=== PATIENT | male | born 1980 | race African-American/Black ===

== ENCOUNTER 2021-04-15 15:58 | Inpatient (IN) | payer OTHER ==
[2021-04-15 16:46] VITALS: BMI 22.7
[2021-04-15] MEDS ORDERED: IBUPROFEN 400 MG TABLET (FP) PO PRN (19:30)
[2021-04-15] MEDS ORDERED: MAG HYDROX/AL HYDROX/SIMETH 30 ML UNIT-DOSE CUP PO PRN (19:30)
[2021-04-15] MEDS ORDERED: ACETAMINOPHEN 325 MG TABLET (FP) PO PRN ×2 (19:30)
[2021-04-15] MEDS ORDERED: cloNIDine HCL 0.1 MG TABLET PO PRN (19:30)
[2021-04-15] MEDS ORDERED: BISMUTH SUBSALICYLATE 524 MG/30 ML PO PRN (19:30)
[2021-04-15] MEDS ORDERED: methaDONE HCL 10 MG TABLET (FOR DETOX USE ONLY) PO ONE (19:30)
[2021-04-15] MEDS ORDERED: LOPERAMIDE HCL 2 MG CAPSULE PO PRN (19:30)
[2021-04-15] MEDS ORDERED: NICOTINE 10 MG CARTRIDGE (INHALER) IH PRN (19:30)
[2021-04-15] MEDS ORDERED: ONDANSETRON *ODT* 4 MG TABLET SL PRN (19:30)
[2021-04-15] MEDS ORDERED: diazePAM 5 MG TABLET PO PRN (19:30)
[2021-04-15] MEDS ORDERED: MENTHOL/PHENOL 1 EACH UD MM PRN (19:30)
[2021-04-15] MEDS ORDERED: MAGNESIUM CITRATE 300 ML BOTTLE PO PRN (19:30)
[2021-04-15] MEDS ORDERED: MAGNESIUM HYDROX 2400MG/30ML ORAL SUSPENSION 30 ML CUP PO PRN (19:30)
[2021-04-15] MEDS ORDERED: ALBUTEROL SO4 HFA INHALER IH PRN (19:34)
[2021-04-15] MEDS ORDERED: methaDONE HCL 10 MG TABLET (FOR DETOX USE ONLY) ONE (22:36)
[2021-04-15] MEDS ORDERED: hydrOXYzine PAMOATE 25 MG CAPSULE (FP) PO ONE (22:36)
[2021-04-15] MEDS: MELATONIN 5 MG TABLETS PO SCH (22:37)
[2021-04-15] MEDS: hydrOXYzine PAMOATE 25 MG CAPSULE (FP) PO SCH (22:38)
[2021-04-15] MEDS: THIAMINE HCL 100 MG TABLET (FP) PO SCH (22:38)
[2021-04-15] MEDS: diazePAM 5 MG TABLET PO SCH (22:39)
[2021-04-16] MEDS ORDERED: diazePAM 5 MG TABLET ONE (06:42)
[2021-04-16] MEDS ORDERED: hydrOXYzine PAMOATE 25 MG CAPSULE (FP) PO ONE (06:42)
[2021-04-16] MEDS: hydrOXYzine PAMOATE 25 MG CAPSULE (FP) PO SCH ×5 (06:48→22:23)
[2021-04-16] MEDS: diazePAM 5 MG TABLET PO SCH ×5 (06:48→22:23)
[2021-04-16] MEDS ORDERED: methaDONE HCL 10 MG TABLET (FOR DETOX USE ONLY) ONE (11:20)
[2021-04-16] MEDS: PRENATAL VITAMINS W/ FOLIC ACID TABLET (FP) PO SCH (11:29)
[2021-04-16] MEDS: METHOCARBAMOL 500 MG TABLET PO PRN ×2 (11:34→17:52)
[2021-04-16] MEDS: MELATONIN 5 MG TABLETS PO SCH (22:23)
[2021-04-16] MEDS: THIAMINE HCL 100 MG TABLET (FP) PO SCH (22:23)
[2021-04-17] MEDS ORDERED: diazePAM 5 MG TABLET PO SCH (06:00)
[2021-04-17] MEDS: hydrOXYzine PAMOATE 25 MG CAPSULE (FP) PO SCH ×2 (06:00→10:11)
[2021-04-17 08:59] VITALS: BP 127/72; PULSE 88; TEMP 98.3
[2021-04-17] MEDS ORDERED: methaDONE HCL 10 MG TABLET (FOR DETOX USE ONLY) PO ONE (10:00)
[2021-04-17] MEDS: PRENATAL VITAMINS W/ FOLIC ACID TABLET (FP) PO SCH (10:11)
[2021-04-17 11:31] LABS: HEMOGLOBIN 14.2 GM/dL (11.7-16.9); MCH 31.3 pg (25.7-33.7); MEAN CELL VOLUME 95.1 fl (80-96); MEAN PLT VOLUME 8.3 fl (7.5-11.1); PLATELET COUNT 315 10^3/uL (134-434); RBC 4.53 M/mm3 (4.00-5.60); RDW 13.9 % (11.9-15.9); WHITE BLOOD COUNT 4.8 K/mm3 (4.0-10.0)
[2021-04-17 11:37] LABS: CALCIUM 8.3 mg/dL (8.5-10.1)
[2021-04-17 11:38] LABS: ALBUMIN 2.5 g/dl (3.4-5.0); CREATININE 0.6 mg/dL (0.55-1.3)
[2021-04-17 11:40] LABS: BILIRUBIN,TOTAL 0.3 mg/dL (0.2-1); TOT PROT 6.6 g/dl (6.4-8.2)
[2021-04-18] MEDS ORDERED: diazePAM 5 MG TABLET PO SCH (06:00)
[2021-04-19] MEDS ORDERED: diazePAM 5 MG TABLET PO ONE (06:00)
[2021-04-19] MEDS ORDERED: methaDONE HCL 10 MG TABLET (FOR DETOX USE ONLY) PO ONE (10:00)
== END 2021-04-17 11:42 | disposition left against medical advice (07) | DRG 770 ==
LOC: YASAS 15:58 → Y3N 04-16 10:32
PROVIDERS: ADMIT Allergy & Immunology; ATTEND Allergy & Immunology
PROC: HZ2ZZZZ Detoxification Services for Substance Abuse Treatment (ICD-10-PCS; principal; 2021-04-16)
DX: F11.23 Opioid dependence with withdrawal (principal); F10.230 Alcohol dependence with withdrawal, uncomplicated; F13.20 Sedative, hypnotic or anxiolytic dependence, uncomplicated; Z91.013 Allergy to seafood
CPT/HCPCS: 36415; 80053; 85027; 86780; 87811; C9803; U0003; U0005

== ENCOUNTER 2021-05-17 17:04 | Inpatient (IN) | payer OTHER ==
[2021-05-17 18:56] VITALS: BMI 23.5
[2021-05-17] MEDS ORDERED: MAGNESIUM HYDROX 2400MG/30ML ORAL SUSPENSION 30 ML CUP PO PRN (21:16)
[2021-05-17] MEDS ORDERED: hydrOXYzine PAMOATE 25 MG CAPSULE (FP) PO PRN (21:16)
[2021-05-17] MEDS ORDERED: MELATONIN 5 MG TABLETS PO PRN (21:16)
[2021-05-17] MEDS ORDERED: ACETAMINOPHEN 325 MG TABLET (FP) PO PRN (21:16)
[2021-05-17] MEDS ORDERED: ALBUTEROL SO4 HFA INHALER IH PRN (21:16)
[2021-05-17] MEDS ORDERED: DICYCLOMINE HCL 10 MG CAPSULE PO PRN (21:16)
[2021-05-17] MEDS ORDERED: MAG HYDROX/AL HYDROX/SIMETH 30 ML UNIT-DOSE CUP PO PRN (21:16)
[2021-05-17] MEDS ORDERED: LOPERAMIDE HCL 2 MG CAPSULE PO PRN (21:16)
[2021-05-17] MEDS ORDERED: BISMUTH SUBSALICYLATE 524 MG/30 ML PO PRN (21:16)
[2021-05-17] MEDS ORDERED: BENZOCAINE/MENTHOL (CHLORASEPTIC ) LOZENGE MM PRN (21:16)
[2021-05-17] MEDS ORDERED: MAGNESIUM CITRATE 300 ML BOTTLE PO PRN (21:16)
[2021-05-17] MEDS ORDERED: NICOTINE POLACRILEX 2 MG GUM BUC PRN (21:16)
[2021-05-17] MEDS ORDERED: METHOCARBAMOL 500 MG TABLET PO PRN (21:16)
[2021-05-17] MEDS ORDERED: ONDANSETRON *ODT* 4 MG TABLET SL PRN (21:16)
[2021-05-17] MEDS ORDERED: IBUPROFEN 400 MG TABLET (FP) PO PRN (21:16)
[2021-05-17] MEDS ORDERED: methaDONE HCL 10 MG TABLET (FOR DETOX USE ONLY) PO ONE (21:20)
[2021-05-17] MEDS ORDERED: cloNIDine HCL 0.1 MG TABLET PO PRN (21:20)
[2021-05-17] MEDS: diazePAM 5 MG TABLET PO SCH (23:44)
[2021-05-17] MEDS: CLINDAMYCIN HCL 150 MG CAPSULE (FP) PO SCH (23:46)
[2021-05-17] MEDS: ACETAMINOPHEN 325 MG TABLET (FP) PO PRN (23:46)
[2021-05-17] MEDS: THIAMINE HCL 100 MG TABLET (FP) PO SCH (23:50)
[2021-05-18] MEDS: CLINDAMYCIN HCL 150 MG CAPSULE (FP) PO SCH ×4 (00:01→18:24)
[2021-05-18] MEDS: diazePAM 5 MG TABLET PO SCH ×4 (06:21→22:26)
[2021-05-18] MEDS: ACETAMINOPHEN 325 MG TABLET (FP) PO PRN ×2 (06:22→14:38)
[2021-05-18] MEDS ORDERED: methaDONE HCL 10 MG TABLET (FOR DETOX USE ONLY) ONE (09:42)
[2021-05-18] MEDS: PRENATAL VITAMINS W/ FOLIC ACID TABLET (FP) PO SCH (10:24)
[2021-05-18] MEDS ORDERED: BUPRENORPHINE/NALOXONE 4 MG/1 MG FILM PACKET SL ONE ×2 (10:51→14:00)
[2021-05-18 12:16] LABS: BLOOD UREA NITROGEN 19.5 mg/dL (7-18); CALCIUM 8.5 mg/dL (8.5-10.1)
[2021-05-18 12:17] LABS: ALBUMIN 2.8 g/dl (3.4-5.0)
[2021-05-18 12:19] LABS: CREATININE 0.8 mg/dL (0.55-1.3)
[2021-05-18 12:20] LABS: HEMATOCRIT 41.5 % (35.4-49); HEMOGLOBIN 13.6 GM/dL (11.7-16.9); MCH 32.1 pg (25.7-33.7); MCHC 32.8 g/dl (32.0-35.9); MEAN CELL VOLUME 98.1 fl (80-96); MEAN PLT VOLUME 8.3 fl (7.5-11.1); PLATELET COUNT 249 10^3/uL (134-434); RBC 4.23 M/mm3 (4.00-5.60); RDW 14.5 % (11.9-15.9); WHITE BLOOD COUNT 6.9 K/mm3 (4.0-10.0)
[2021-05-18 12:21] LABS: BILIRUBIN,TOTAL 0.5 mg/dL (0.2-1); TOT PROT 6.2 g/dl (6.4-8.2)
[2021-05-18] MEDS: diazePAM 5 MG TABLET PO PRN (14:35)
[2021-05-18] MEDS: BUPRENORPHINE/NALOXONE 8 MG/2 MG FILM PACKET SL SCH (18:31)
[2021-05-18] MEDS ORDERED: BUPRENORPHINE/NALOXONE 8 MG/2 MG FILM PACKET SL SCH (22:00)
[2021-05-18] MEDS: BACLOFEN 10 MG TABLET (FP) PO PRN (22:26)
[2021-05-18] MEDS: THIAMINE HCL 100 MG TABLET (FP) PO SCH (22:26)
[2021-05-19] MEDS: CLINDAMYCIN HCL 150 MG CAPSULE (FP) PO SCH ×3 (01:04→13:18)
[2021-05-19] MEDS: diazePAM 5 MG TABLET PO SCH ×2 (05:18→15:17)
[2021-05-19] MEDS: BACLOFEN 10 MG TABLET (FP) PO PRN (05:19)
[2021-05-19] MEDS: ACETAMINOPHEN 325 MG TABLET (FP) PO PRN (05:22)
[2021-05-19 08:54] VITALS: BP 126/73; PULSE 64; TEMP 98.2
[2021-05-19] MEDS ORDERED: methaDONE HCL 10 MG TABLET (FOR DETOX USE ONLY) PO ONE (10:00)
[2021-05-19] MEDS: diazePAM 5 MG TABLET PO PRN (10:10)
[2021-05-19] MEDS: PRENATAL VITAMINS W/ FOLIC ACID TABLET (FP) PO SCH (10:11)
[2021-05-19] MEDS: BUPRENORPHINE/NALOXONE 8 MG/2 MG FILM PACKET SL SCH (10:11)
[2021-05-19 18:08] LABS: SARS-CoV-2 NAA Not Detected (Not Detected)
[2021-05-20] MEDS ORDERED: diazePAM 5 MG TABLET PO SCH (06:00)
[2021-05-21] MEDS ORDERED: diazePAM 5 MG TABLET PO ONE (06:00)
[2021-05-21] MEDS ORDERED: methaDONE HCL 10 MG TABLET (FOR DETOX USE ONLY) PO ONE (10:00)
== END 2021-05-19 11:20 | disposition left against medical advice (07) | DRG 770 ==
LOC: YASAS 17:04 → Y3N 22:22
PROVIDERS: ADMIT Allergy & Immunology; ATTEND Allergy & Immunology
PROC: HZ2ZZZZ Detoxification Services for Substance Abuse Treatment (ICD-10-PCS; principal; 2021-05-17)
DX: F11.20 Opioid dependence, uncomplicated (principal); F13.20 Sedative, hypnotic or anxiolytic dependence, uncomplicated; F14.20 Cocaine dependence, uncomplicated; F10.20 Alcohol dependence, uncomplicated; F17.210 Nicotine dependence, cigarettes, uncomplicated; F19.24 Other psychoactive substance dependence with psychoactive substance-induced mood disorder; B18.2 Chronic viral hepatitis C; G47.00 Insomnia, unspecified; J45.909 Unspecified asthma, uncomplicated; Z91.013 Allergy to seafood; Z59.00 Homelessness unspecified
CPT/HCPCS: 36415; 80053; 85027; 86780; C9803-CS; J0475; U0003; U0005

== ENCOUNTER 2021-07-04 17:28 | Inpatient (IN) | payer OTHER ==
[2021-07-04 20:13] VITALS: BMI 24.1
[2021-07-04] MEDS ORDERED: hydrOXYzine PAMOATE 25 MG CAPSULE (FP) PO PRN (20:48)
[2021-07-04] MEDS ORDERED: guaiFENesin 200 MG/10 ML 10 ML UNIT-DOSE CUPS PO PRN (20:48)
[2021-07-04] MEDS ORDERED: DICYCLOMINE HCL 10 MG CAPSULE PO PRN (20:48)
[2021-07-04] MEDS ORDERED: LOPERAMIDE HCL 2 MG CAPSULE PO PRN (20:48)
[2021-07-04] MEDS ORDERED: MAGNESIUM CITRATE 300 ML BOTTLE PO PRN (20:48)
[2021-07-04] MEDS ORDERED: P-EPHED 60MG/TRIPROLIDI 2.5MG TABLET PO PRN (20:48)
[2021-07-04] MEDS ORDERED: ONDANSETRON *ODT* 4 MG TABLET SL PRN (20:48)
[2021-07-04] MEDS ORDERED: MAG HYDROX/AL HYDROX/SIMETH 30 ML UNIT-DOSE CUP PO PRN (20:48)
[2021-07-04] MEDS ORDERED: IBUPROFEN 400 MG TABLET (FP) PO PRN (20:48)
[2021-07-04] MEDS ORDERED: MAGNESIUM HYDROX 2400MG/30ML ORAL SUSPENSION 30 ML CUP PO PRN (20:48)
[2021-07-04] MEDS ORDERED: ACETAMINOPHEN 325 MG TABLET (FP) PO PRN (20:48)
[2021-07-04] MEDS ORDERED: NALOXONE HCL 0.4 MG/ML VIAL IM PRN (20:48)
[2021-07-04] MEDS ORDERED: BISMUTH SUBSALICYLATE 524 MG/30 ML PO PRN (20:48)
[2021-07-04] MEDS ORDERED: BENZOCAINE/MENTHOL (CHLORASEPTIC ) LOZENGE MM PRN (20:48)
[2021-07-05] MEDS: ACETAMINOPHEN 325 MG TABLET (FP) PO PRN ×4 (01:26→22:48)
[2021-07-05] MEDS: MELATONIN 5 MG TABLETS PO SCH ×2 (01:40→22:47)
[2021-07-05] MEDS: THIAMINE HCL 100 MG TABLET (FP) PO SCH ×2 (01:40→22:47)
[2021-07-05] MEDS ORDERED: cloNIDine HCL 0.1 MG TABLET PO PRN (09:00)
[2021-07-05] MEDS ORDERED: ALBUTEROL SO4 HFA INHALER IH PRN (09:07)
[2021-07-05] MEDS ORDERED: methaDONE HCL 10 MG TABLET (FOR DETOX USE ONLY) PO ONE (09:30)
[2021-07-05] MEDS: NICOTINE 21 MG/24 HOURS TOPICAL PATCH TD SCH (10:11)
[2021-07-05] MEDS: PRENATAL VITAMINS W/ FOLIC ACID TABLET (FP) PO SCH (10:11)
[2021-07-05] MEDS: diazePAM 5 MG TABLET PO PRN ×3 (10:12→22:49)
[2021-07-05 10:56] LABS: HEMATOCRIT 43.4 % (35.4-49); HEMOGLOBIN 14.5 GM/dL (11.7-16.9); MCH 32.3 pg (25.7-33.7); MCHC 33.5 g/dl (32.0-35.9); MEAN CELL VOLUME 96.6 fl (80-96); MEAN PLT VOLUME 8.6 fl (7.5-11.1); PLATELET COUNT 169 10^3/uL (134-434); RDW 13.1 % (11.9-15.9); WHITE BLOOD COUNT 6.4 K/mm3 (4.0-10.0)
[2021-07-05 11:19] LABS: BLOOD UREA NITROGEN 17.4 mg/dL (7-18); CALCIUM 8.5 mg/dL (8.5-10.1)
[2021-07-05 11:22] LABS: TOT PROT 6.6 g/dl (6.4-8.2)
[2021-07-05 11:23] LABS: BILIRUBIN,TOTAL 0.5 mg/dL (0.2-1); CREATININE 0.7 mg/dL (0.55-1.3)
[2021-07-05 11:58] LABS: HIV INTERPRETATION NEGATIVE (NEGATIVE)
[2021-07-05] MEDS ORDERED: ALBUTEROL SO4 HFA INHALER IH SCH (12:30)
[2021-07-05] MEDS: ALBUTEROL SO4 HFA INHALER IH PRN ×2 (17:15→22:46)
[2021-07-05] MEDS: METHOCARBAMOL 500 MG TABLET PO PRN (22:48)
[2021-07-06] MEDS ORDERED: methaDONE HCL 10 MG TABLET (FOR DETOX USE ONLY) ONE (08:49)
[2021-07-06] MEDS ORDERED: ALBUTEROL SO4 2.5/IPRATROPIUM 0.5 INH SOL 3 ML VIAL.NEB. NEB PRN (09:54)
[2021-07-06] MEDS: PRENATAL VITAMINS W/ FOLIC ACID TABLET (FP) PO SCH (10:12)
[2021-07-06] MEDS: NICOTINE 21 MG/24 HOURS TOPICAL PATCH TD SCH (10:13)
[2021-07-06] MEDS: NICOTINE POLACRILEX 2 MG GUM BUC PRN (10:13)
[2021-07-06] MEDS: diazePAM 5 MG TABLET PO PRN ×3 (10:14→21:08)
[2021-07-06] MEDS: ALBUTEROL SO4 HFA INHALER IH PRN ×2 (10:17→15:33)
[2021-07-06] MEDS: ACETAMINOPHEN 325 MG TABLET (FP) PO PRN (10:17)
[2021-07-06] MEDS: MELATONIN 5 MG TABLETS PO SCH (21:07)
[2021-07-06] MEDS: THIAMINE HCL 100 MG TABLET (FP) PO SCH (21:07)
[2021-07-07] MEDS: diazePAM 5 MG TABLET PO PRN ×4 (05:41→22:23)
[2021-07-07] MEDS: ALBUTEROL SO4 HFA INHALER IH PRN ×3 (05:41→17:13)
[2021-07-07] MEDS ORDERED: methaDONE HCL 10 MG TABLET (FOR DETOX USE ONLY) PO ONE (10:00)
[2021-07-07] MEDS: PRENATAL VITAMINS W/ FOLIC ACID TABLET (FP) PO SCH (10:29)
[2021-07-07] MEDS: METHOCARBAMOL 500 MG TABLET PO PRN ×2 (10:29→22:23)
[2021-07-07] MEDS: NICOTINE 21 MG/24 HOURS TOPICAL PATCH TD SCH (10:29)
[2021-07-07] MEDS: ACETAMINOPHEN 325 MG TABLET (FP) PO PRN ×2 (10:32→17:07)
[2021-07-07] MEDS: NICOTINE POLACRILEX 2 MG GUM BUC PRN (17:12)
[2021-07-07] MEDS: MELATONIN 5 MG TABLETS PO SCH (22:21)
[2021-07-07] MEDS: THIAMINE HCL 100 MG TABLET (FP) PO SCH (22:21)
[2021-07-08] MEDS: ALBUTEROL SO4 HFA INHALER IH PRN (05:42)
[2021-07-08] MEDS: diazePAM 5 MG TABLET PO PRN (05:42)
[2021-07-08 08:07] VITALS: BP 103/63; PULSE 74; TEMP 97.3
[2021-07-08] MEDS ORDERED: methaDONE HCL 10 MG TABLET (FOR DETOX USE ONLY) ONE (09:07)
[2021-07-09] MEDS ORDERED: methaDONE HCL 10 MG TABLET (FOR DETOX USE ONLY) PO ONE (10:00)
== END 2021-07-08 09:33 | disposition left against medical advice (07) | DRG 770 ==
LOC: YASAS 17:28 → Y3N 21:56 → UNDOADMIN 21:56
PROVIDERS: ADMIT Allergy & Immunology; ATTEND Surgery
PROC: HZ2ZZZZ Detoxification Services for Substance Abuse Treatment (ICD-10-PCS; principal; 2021-07-04)
DX: F11.23 Opioid dependence with withdrawal (principal); F13.20 Sedative, hypnotic or anxiolytic dependence, uncomplicated; F14.20 Cocaine dependence, uncomplicated; F10.230 Alcohol dependence with withdrawal, uncomplicated; F17.210 Nicotine dependence, cigarettes, uncomplicated; F19.24 Other psychoactive substance dependence with psychoactive substance-induced mood disorder; G47.00 Insomnia, unspecified; J45.20 Mild intermittent asthma, uncomplicated; B18.2 Chronic viral hepatitis C; Z59.00 Homelessness unspecified; Z91.19 Patient's noncompliance with other medical treatment and regimen
CPT/HCPCS: 36415; 80053; 85027; 86780; 87389; 94640; C9803-CS; Q0162; U0003; U0005

== ENCOUNTER 2021-08-24 09:52 | Inpatient (IN) | payer OTHER ==
[2021-08-24 10:29] VITALS: BMI 24.1
[2021-08-24] MEDS ORDERED: methaDONE HCL 10 MG TABLET (FOR DETOX USE ONLY) PO ONE (11:24)
[2021-08-24] MEDS ORDERED: BISMUTH SUBSALICYLATE 262 MG/15 ML BTL PO PRN (11:24)
[2021-08-24] MEDS ORDERED: ONDANSETRON *ODT* 4 MG TABLET SL PRN (11:24)
[2021-08-24] MEDS ORDERED: MAGNESIUM CITRATE 300 ML BOTTLE PO PRN (11:24)
[2021-08-24] MEDS ORDERED: IBUPROFEN 400 MG TABLET (FP) PO PRN (11:24)
[2021-08-24] MEDS ORDERED: NICOTINE 10 MG CARTRIDGE (INHALER) IH PRN (11:24)
[2021-08-24] MEDS ORDERED: LOPERAMIDE HCL 2 MG CAPSULE PO PRN (11:24)
[2021-08-24] MEDS ORDERED: DICYCLOMINE HCL 10 MG CAPSULE PO PRN (11:24)
[2021-08-24] MEDS ORDERED: MAGNESIUM HYDROX 2400MG/30ML ORAL SUSPENSION 30 ML CUP PO PRN (11:24)
[2021-08-24] MEDS ORDERED: cloNIDine HCL 0.1 MG TABLET PO PRN (11:24)
[2021-08-24] MEDS ORDERED: ACETAMINOPHEN 325 MG TABLET (FP) PO PRN (11:24)
[2021-08-24] MEDS ORDERED: MAG HYDROX/AL HYDROX/SIMETH 30 ML UNIT-DOSE CUP PO PRN (11:24)
[2021-08-24] MEDS ORDERED: BENZOCAINE/MENTHOL (CHLORASEPTIC ) LOZENGE MM PRN (11:24)
[2021-08-24] MEDS ORDERED: diazePAM 5 MG TABLET ONE (11:58)
[2021-08-24] MEDS ORDERED: methaDONE HCL 10 MG TABLET (FOR DETOX USE ONLY) ONE (11:59)
[2021-08-24] MEDS: diazePAM 5 MG TABLET PO SCH ×3 (12:03→22:22)
[2021-08-24] MEDS: NICOTINE 14 MG/24 HOURS TOPICAL PATCH TD SCH (12:35)
[2021-08-24] MEDS: IBUPROFEN 600 MG TABLET (FP) PO PRN (12:37)
[2021-08-24] MEDS: hydrOXYzine PAMOATE 25 MG CAPSULE (FP) PO SCH ×4 (12:41→22:21)
[2021-08-24] MEDS: MELATONIN 5 MG TABLETS PO SCH (22:21)
[2021-08-24] MEDS: THIAMINE HCL 100 MG TABLET (FP) PO SCH (22:21)
[2021-08-24] MEDS: METHOCARBAMOL 500 MG TABLET PO PRN (22:23)
[2021-08-25] MEDS: diazePAM 5 MG TABLET PO SCH ×4 (05:44→22:24)
[2021-08-25] MEDS: hydrOXYzine PAMOATE 25 MG CAPSULE (FP) PO SCH ×5 (05:44→22:24)
[2021-08-25] MEDS ORDERED: methaDONE HCL 10 MG TABLET (FOR DETOX USE ONLY) ONE (09:30)
[2021-08-25] MEDS: diazePAM 5 MG TABLET PO PRN ×3 (09:34→20:20)
[2021-08-25] MEDS: PRENATAL VITAMINS W/ FOLIC ACID TABLET (FP) PO SCH (10:18)
[2021-08-25] MEDS: NICOTINE 14 MG/24 HOURS TOPICAL PATCH TD SCH (10:20)
[2021-08-25 12:57] LABS: HEMATOCRIT 39.5 % (35.4-49); HEMOGLOBIN 13.3 GM/dL (11.7-16.9); MCHC 33.6 g/dl (32.0-35.9); MEAN CELL VOLUME 95.3 fl (80-96); MEAN PLT VOLUME 8.3 fl (7.5-11.1); PLATELET COUNT 265 10^3/uL (134-434); RBC 4.14 M/mm3 (4.00-5.60); RDW 13.8 % (11.9-15.9); WHITE BLOOD COUNT 4.4 K/mm3 (4.0-10.0)
[2021-08-25 13:22] LABS: ALBUMIN 2.7 g/dl (3.4-5.0); BLOOD UREA NITROGEN 9.8 mg/dL (7-18); CALCIUM 8.1 mg/dL (8.5-10.1)
[2021-08-25 13:25] LABS: CREATININE 0.6 mg/dL (0.55-1.3)
[2021-08-25 13:27] LABS: BILIRUBIN,TOTAL 0.4 mg/dL (0.2-1); TOT PROT 6.1 g/dl (6.4-8.2)
[2021-08-25] MEDS: IBUPROFEN 600 MG TABLET (FP) PO PRN (13:42)
[2021-08-25 13:54] LABS: HIV INTERPRETATION NEGATIVE (NEGATIVE)
[2021-08-25] MEDS: ALBUTEROL SO4 HFA INHALER IH PRN ×2 (14:57→20:23)
[2021-08-25] MEDS: ACETAMINOPHEN 325 MG TABLET (FP) PO PRN ×2 (15:01→20:19)
[2021-08-25] MEDS: BACITRACIN 0.9 GM PACKET TP SCH (16:02)
[2021-08-25] MEDS: METHOCARBAMOL 500 MG TABLET PO PRN (18:10)
[2021-08-25] MEDS: THIAMINE HCL 100 MG TABLET (FP) PO SCH (22:24)
[2021-08-25] MEDS: MELATONIN 5 MG TABLETS PO SCH (22:24)
[2021-08-26] MEDS: diazePAM 5 MG TABLET PO SCH ×3 (05:41→22:29)
[2021-08-26] MEDS: hydrOXYzine PAMOATE 25 MG CAPSULE (FP) PO SCH ×5 (05:41→22:29)
[2021-08-26] MEDS ORDERED: methaDONE HCL 10 MG TABLET (FOR DETOX USE ONLY) PO ONE (10:00)
[2021-08-26] MEDS: PRENATAL VITAMINS W/ FOLIC ACID TABLET (FP) PO SCH (10:12)
[2021-08-26] MEDS: METHOCARBAMOL 500 MG TABLET PO PRN (10:13)
[2021-08-26] MEDS: NICOTINE 14 MG/24 HOURS TOPICAL PATCH TD SCH (10:13)
[2021-08-26] MEDS: BACITRACIN 0.9 GM PACKET TP SCH (10:13)
[2021-08-26] MEDS: diazePAM 5 MG TABLET PO PRN ×2 (10:13→17:59)
[2021-08-26] MEDS: ACETAMINOPHEN 325 MG TABLET (FP) PO PRN (10:14)
[2021-08-26] MEDS: THIAMINE HCL 100 MG TABLET (FP) PO SCH (22:28)
[2021-08-26] MEDS: MELATONIN 5 MG TABLETS PO SCH (22:28)
[2021-08-27] MEDS: hydrOXYzine PAMOATE 25 MG CAPSULE (FP) PO SCH ×5 (05:31→22:10)
[2021-08-27] MEDS: diazePAM 5 MG TABLET PO SCH ×2 (05:31→17:27)
[2021-08-27] MEDS: diazePAM 5 MG TABLET PO PRN (08:56)
[2021-08-27] MEDS: ACETAMINOPHEN 325 MG TABLET (FP) PO PRN ×2 (08:56→14:08)
[2021-08-27] MEDS ORDERED: methaDONE HCL 10 MG TABLET (FOR DETOX USE ONLY) ONE (10:07)
[2021-08-27] MEDS: NICOTINE 14 MG/24 HOURS TOPICAL PATCH TD SCH (10:22)
[2021-08-27] MEDS: PRENATAL VITAMINS W/ FOLIC ACID TABLET (FP) PO SCH (10:22)
[2021-08-27] MEDS: METHOCARBAMOL 500 MG TABLET PO PRN ×2 (10:23→22:10)
[2021-08-27] MEDS: BACITRACIN 0.9 GM PACKET TP SCH (10:23)
[2021-08-27] MEDS ORDERED: cloNIDine HCL 0.1 MG TABLET PO PRN (14:01)
[2021-08-27] MEDS: MELATONIN 5 MG TABLETS PO SCH (22:10)
[2021-08-27] MEDS: THIAMINE HCL 100 MG TABLET (FP) PO SCH (22:10)
[2021-08-27] MEDS: ALBUTEROL SO4 HFA INHALER IH PRN (22:13)
[2021-08-28] MEDS: hydrOXYzine PAMOATE 25 MG CAPSULE (FP) PO SCH ×5 (05:28→22:11)
[2021-08-28] MEDS ORDERED: diazePAM 5 MG TABLET PO ONE ×2 (06:00→14:00)
[2021-08-28] MEDS ORDERED: methaDONE HCL 10 MG TABLET (FOR DETOX USE ONLY) PO ONE (10:00)
[2021-08-28] MEDS: NICOTINE 14 MG/24 HOURS TOPICAL PATCH TD SCH (10:10)
[2021-08-28] MEDS: PRENATAL VITAMINS W/ FOLIC ACID TABLET (FP) PO SCH (10:10)
[2021-08-28] MEDS: BACITRACIN 0.9 GM PACKET TP SCH (10:10)
[2021-08-28] MEDS: IBUPROFEN 600 MG TABLET (FP) PO PRN (10:12)
[2021-08-28] MEDS: ACETAMINOPHEN 325 MG TABLET (FP) PO PRN ×2 (13:48→22:12)
[2021-08-28] MEDS: METHOCARBAMOL 500 MG TABLET PO PRN (13:49)
[2021-08-28] MEDS ORDERED: ESCITALOPRAM OXALATE 10 MG TABLET PO SCH (14:30)
[2021-08-28] MEDS ORDERED: diazePAM 5 MG TABLET PO PRN (20:33)
[2021-08-28] MEDS: ALBUTEROL SO4 HFA INHALER IH PRN (22:11)
[2021-08-28] MEDS: MELATONIN 5 MG TABLETS PO SCH (22:11)
[2021-08-28] MEDS: THIAMINE HCL 100 MG TABLET (FP) PO SCH (22:11)
[2021-08-29] MEDS: hydrOXYzine PAMOATE 25 MG CAPSULE (FP) PO SCH (05:42)
[2021-08-29 09:42] VITALS: BP 111/66; PULSE 78; TEMP 97.6
[2021-08-29] MEDS: ACETAMINOPHEN 325 MG TABLET (FP) PO PRN (09:42)
[2021-08-29] MEDS: ALBUTEROL SO4 HFA INHALER IH PRN (09:44)
== END 2021-08-29 09:57 | disposition home or self-care (01) | DRG 773 ==
LOC: YASAS 09:52 → Y3N 11:48
PROVIDERS: ADMIT Allergy & Immunology; ATTEND Surgery
PROC: HZ2ZZZZ Detoxification Services for Substance Abuse Treatment (ICD-10-PCS; principal; 2021-08-24)
DX: F11.23 Opioid dependence with withdrawal (principal); F13.20 Sedative, hypnotic or anxiolytic dependence, uncomplicated; F10.20 Alcohol dependence, uncomplicated; F14.20 Cocaine dependence, uncomplicated; F17.210 Nicotine dependence, cigarettes, uncomplicated; F19.24 Other psychoactive substance dependence with psychoactive substance-induced mood disorder; F43.10 Post-traumatic stress disorder, unspecified; F41.9 Anxiety disorder, unspecified; F90.9 Attention-deficit hyperactivity disorder, unspecified type; J45.20 Mild intermittent asthma, uncomplicated; B18.2 Chronic viral hepatitis C; Z59.00 Homelessness unspecified; Z91.19 Patient's noncompliance with other medical treatment and regimen
CPT/HCPCS: 36415; 80053; 85027; 86780; 87389; C9803-CS; J0735; Q0162; U0003; U0005